=== PATIENT | female | born 1970 | race Caucasian/White ===

== ENCOUNTER 2023-09-10 16:05 | Emergency (ER) | payer OTHER, SELFPAY ==
[2023-09-10 16:07] VITALS: BP 165/93
--- NOTE | 2023-09-10 17:05 | ED.MUSCINJ ---
HPI-Injury
General
Chief Complaint: Musculo-Skeletal Complaint
Source: patient
Exam Limitations: none
Time Seen by Provider: 09/10/23 16:39
Nursing documentation reviewed up to this point in time: agreed with
History of Present Illness-Injury
Is this injury a work related problem?: No
Is pt an associate of [facility] [place]?: No
Initial Injury comments:
Patient states she rolled her left foot. COmplains of pain to left lateral foot. Injury occurred this past weekend. Brought self to ED for eval.
Past History
Past History
ED Past Medical History: Other (Diverticulitis, diverticulosis) and Other (Uterine fibroids)
ED Past Surgical History: Gynecological, Tonsilectomy and Other (G3, P3; breast augmentation; endometrial ablasion; ); Negative Appendectomy, Bowel resection, Brain or Cardiac
Social History
Tobacco: Smoker
Alcohol: Occasional
Drug: None
Personal:
Living: with family
Employment: Employed
Family History
Family History: Other (reviewed and non-contributory)
Review of Systems
Review of Systems
Allergies reviewed?: Yes
All Other Systems: ROS reviewed and negative except as documented in HPI and ROS
Constitutional: Reports no symptoms
Musculoskeletal: Reports joint pain (Pain to left lateral foot)
Skin: Reports no symptoms
Neurological: Reports no symptoms
Psychiatric: Reports no symptoms
Musculoskeletal Injury Exam
Musculoskeletal Injury Exam
Left Lateral Foot:
Pain with Movement?: Moderate
Tender to palpation?: Moderate
Soft tissue swelling?: Mild
External deformity and angulation?: None
Joint effusion?: None
Contusion?: None
Hematoma-local bleeding into tissue?: Moderate
Strain- Sprain- Tear (Connective tissue injury)?: Moderate
Crepitus with movement?: No
Joint instability?: No
Malalignment/deformity?: No
Range of motion: Limited
Distal skin color and temperature: normal-warm & good color
Capillary Refill: normal
Normal distal neurovascular exam?: Yes
Peripheral Pulses: posterior tibial (left): 3+ and dorsalis pedis (left): 3+
Phy Exam
General Physical Exam
General Presentation: well appearing and no apparent distress
General age: appears stated age
General Skin: warm and dry
General Habitus: normal
General Mental: alert
Musculoskeletal Exam
Musculoskeletal Exam: full ROM, neuro vasc intact and other (achilles intact.No tenderness proximal tib/fib)
Skin Exam
Skin Exam: normal color, warm/dry and no rash
Psychiatric Exam
Psychiatric Exam: normal mood/affect
Injury Course
Orders/Labs/Results
Orders:
Orders
09/10/23 16:10
Ankle, left 3 view CR [CR Ankle - Left Min 3 Views ] Urgent
Comment:
Reason For Exam: pain, swelling, injury
Foot, Left 3 View [CR Foot - Left Min 3 Views] Urgent
Comment:
Reason For Exam: pain on outer foot area
09/10/23 16:58
Ortho Boot Left- Treatment ONCE
Short or tall?: Short
*Radiology
Radiology exam reviewed: radiology read reviewed
*Critical Care Note
Total Time (30-74mins, 75-104mins- exclusive of procedures): Not Applicable
ED Attending Note
-
Portions of this chart may have been created with voice recognition software.� Occasional wrong word or��sound alike� substitutions may have occurred due to the inherent limitations of voice recognition software.
Discharge Plan
Departure
Patient Disposition: Home (Routine Discharge)
Date of Disposition: 09/10/23
Time of Disposition: 16:59
Patient with high blood pressure during this ER visit?: No
Condition: Good
Covid-19: Not Applicable
Discharge Problem:
Metatarsal fracture
Instructions: Ibuprofen, Walking Boot, Using Cold for Pain, Foot Fracture
Prescriptions:
No Action
alprazolam 0.25 MG tablet
0.25 mg PO PRN PRN (Reason: anxiety)
amoxicillin-pot clavulanate 875-125 mg tablet
1 tab PO TID 7 Days Qty: 21 0RF
fluconazole [Diflucan] 150 mg tablet
150 mg PO ONCE Qty: 1 0RF
Rx Instructions:
Please take dose after conclusion of antibiotics.
oxycodone 5 mg tablet
5 mg PO BID PRN (Reason: Pain) Qty: 10 0RF
cephalexin 500 mg tablet
500 mg PO BID 10 Days Qty: 20 0RF
Referrals:
Juan Pablo Lozano MD [Active] - Call in 1-3 days for appt
Desire Monique DO [Family Provider] -
Interventions
Interventions:
*Risk Screen - Suicide Last Done: 09/10/23 16:07
*General Assessment Last Done: 09/10/23 16:07
*Neglect/Abuse Screening Last Done: 09/10/23 16:07
ED-Musculoskeletal Assessment Last Done: 09/10/23 16:35
Discharge Date and Time
Print Language: YORUBA
[2023-09-10 17:15] VITALS: BP 143/99
== END 2023-09-10 17:16 | disposition home or self-care (01) ==
LOC: EMR 16:05
PROVIDERS: EMERGENCY PHYSICIAN Emergency Medicine; FAMILY PHYSICIAN Family Medicine
DX: S92.302A Fracture of unspecified metatarsal bone(s), left foot, initial encounter for closed fracture (principal); S90.32XA Contusion of left foot, initial encounter; X50.1XXA Overexertion from prolonged static or awkward postures, initial encounter; K57.90 Diverticulosis of intestine, part unspecified, without perforation or abscess without bleeding; F41.9 Anxiety disorder, unspecified; F17.210 Nicotine dependence, cigarettes, uncomplicated
CPT/HCPCS: 99283; 29515; 73610; 73630

== ENCOUNTER 2023-12-26 08:57 | Emergency (ER) | payer OTHER, SELFPAY ==
[2023-12-26 08:59] VITALS: BP 128/76
[2023-12-26 09:42] VITALS: BMI 28.3
[2023-12-26] MEDS: BENADRYL 50 MG PO (09:45)
[2023-12-26] MEDS: DELTASONE 60 MG PO (09:45)
--- NOTE | 2023-12-26 09:45 | ED.GENMED ---
History of Present Illness
General
Chief Complaint: Allergic Reaction
Time Seen by Provider: 12/26/23 09:23
History of Present Illness
History of Present Illness:
53-year-old female without significant past medical history presenting for concern of allergic reaction. Patient reports symptoms started 2 days ago. She presents with diffuse hives of unclear etiology. She denies throat closure or difficulty
breathing. Denies abdominal pain or vomiting. Does note that she is recovering from recent diverticulitis, has been on ciprofloxacin and metronidazole since last Saturday, has never had a reaction to these medications. He has been drinking naked
smoothies, is unclear if she reacted to a component of that. Denies known allergies in the past. Denies additional acute medical complaint
Past History
Past History
ED Past Medical History: Other (Diverticulitis, diverticulosis) and Other (Uterine fibroids)
ED Past Surgical History: Gynecological, Tonsilectomy and Other (G3, P3; breast augmentation; endometrial ablasion; ); Negative Appendectomy, Bowel resection, Brain or Cardiac
Social History
Tobacco: Smoker
Alcohol: Occasional
Drug: None
Personal:
Living: with family
Employment: Employed
Family History
Family History: Other (reviewed and non-contributory)
Phy Exam
Physical Exam
Physical Exam:
General: Well-appearing, no clinical signs of dehydration, nontoxic and in no acute distress
HEENT: protecting airway, no oropharyngeal swelling
Neck: appears supple
CV: Normal heart rate, regular rhythm
Resp: No accessory muscle use, no increased work of breathing, lungs clear to auscultation bilaterally
Abd: Soft and non-distended, no tenderness to palpation
Extremities: No deformities, no swelling
Neuro: alert, no focal neurologic deficit
: deferred
Rectal: deferred
Psych: Normal affect
Skin: Diffuse urticaria to the chest/back/extremities
Course
Orders/Labs/Results
Orders:
Orders
12/26/23 09:31
Diphenhydramine [Benadryl] 50 mg PO NOW STA
Prednisone [Deltasone] 60 mg PO NOW STA
Vital Signs
Initial and Last Documented VS:
Initial Vital Signs
Temp Pulse Resp BP Pulse Ox
98.4 F 85 18 128/76 99
12/26/23 08:59 12/26/23 08:59 12/26/23 08:59 12/26/23 08:59 12/26/23 08:59
Last Documented Vital Signs
Temp Pulse Resp BP Pulse Ox
98.4 F 85 18 128/76 100
12/26/23 08:59 12/26/23 08:59 12/26/23 08:59 12/26/23 08:59 12/26/23 09:42
MDM/Problems Addressed
MDM/Problems Addressed:
53-year-old female presenting to the emergency department for concern of allergic reaction with diffuse urticaria. Vital signs on arrival are normal.
On exam patient is well-appearing, no acute respiratory distress. Benign cardiac and pulmonary exam. No tenderness to abdomen. Symptoms appear most consistent with acute allergic reaction, unclear trigger. No acute signs of anaphylaxis, again no
respiratory or systemic symptoms. Patient is protecting airway. Patient is currently on antibiotics, however has been on them for about a week now and has tolerated these medications in the past. Did have discussion about changing antibiotics.
Would like to finish out her course, because she also reacts poorly to Augmentin. Given diffuse nature of urticaria, will start on oral steroid. Otherwise feel stable for discharge. Advised follow-up with PCP and potato inspector for full allergy
testing, possible food allergen. Symptoms started after drinking a smoothie. Will prescribe steroid, Benadryl, EpiPen. Return precautions discussed and patient verbalized understanding.
*Critical Care Note
Total Time (30-74mins, 75-104mins- exclusive of procedures): Not Applicable
ED Attending Note
-
Portions of this chart may have been created with voice recognition software.� Occasional wrong word or��sound alike� substitutions may have occurred due to the inherent limitations of voice recognition software.
Discharge Plan
Departure
Patient Disposition: Home (Routine Discharge)
Date of Disposition: 12/26/23
Time of Disposition: 09:45
Patient with high blood pressure during this ER visit?: No
Condition: Good
Discharge Problem:
Allergic reaction, Acute urticaria
Instructions: Hives (DC), Allergic Reaction ED
Prescriptions:
New
prednisone 20 mg tablet
40 mg PO BID 5 Days Qty: 20 0RF
diphenhydramine HCl [Benadryl] 25 mg capsule
25 mg PO TID PRN (Reason: allergic reaction) Qty: 15 0RF
epinephrine [EpiPen 2-Jayden] 0.3 mg/0.3 mL auto-injector
0.3 mg IM ONCE Qty: 2 0RF
No Action
alprazolam 0.25 MG tablet
0.25 mg PO PRN PRN (Reason: anxiety)
amoxicillin-pot clavulanate 875-125 mg tablet
1 tab PO TID 7 Days Qty: 21 0RF
fluconazole [Diflucan] 150 mg tablet
150 mg PO ONCE Qty: 1 0RF
Rx Instructions:
Please take dose after conclusion of antibiotics.
oxycodone 5 mg tablet
5 mg PO BID PRN (Reason: Pain) Qty: 10 0RF
cephalexin 500 mg tablet
500 mg PO BID 10 Days Qty: 20 0RF
Referrals:
Desire Monique DO [Family Provider] -
Activity Restrictions/Additional Instructions:
You were seen in the emergency department for concern of an allergic reaction
You were prescribed prednisone and an EpiPen
Please follow-up closely with your primary care physician.
Return to the emergency department for any worsening of your symptoms, including worsening of rash, feeling of throat swelling or closure, or any development of chest pain, difficulty breathing, abdominal pain with persistent vomiting and inability
to tolerate food or liquid by mouth (concern for dehydration), weakness, headache or confusion, fever greater than 100.4, or any additional symptoms that are concerning to you.
Thank you for choosing [facility].
Interventions
Interventions:
*Risk Screen - Suicide Last Done: 12/26/23 08:59
*General Assessment Last Done: 12/26/23 08:59
*Neglect/Abuse Screening Last Done: 12/26/23 08:59
ED- Fall Risk Assessment Last Done: 12/26/23 09:42
*ED COVID-19 Vaccine History Last Done: 12/26/23 09:42
ED- Cardiac Assessment Last Done: 12/26/23 09:42
ED- Pulmonary Assessment Last Done: 12/26/23 09:42
ED-Skin Assessment Last Done: 12/26/23 09:42
Discharge Date and Time
Print Language: SETSWANA
== END 2023-12-26 09:49 | disposition home or self-care (01) ==
LOC: EMR 08:57
PROVIDERS: EMERGENCY PHYSICIAN Student in an Organized Health Care Education/Training Program; FAMILY PHYSICIAN Family Medicine
DX: L50.0 Allergic urticaria (principal); T78.40XA Allergy, unspecified, initial encounter; X58.XXXA Exposure to other specified factors, initial encounter; F17.200 Nicotine dependence, unspecified, uncomplicated
CPT/HCPCS: 99283

== ENCOUNTER 2024-07-17 08:41 | Emergency (ER) | payer OTHER, SELFPAY ==
[2024-07-17 08:46] VITALS: BP 154/98
--- NOTE | 2024-07-17 09:45 | ED.GENMED ---
History of Present Illness
General
Chief Complaint: Musculo-Skeletal Complaint
Time Seen by Provider: 07/17/24 08:51
History of Present Illness
History of Present Illness:
54-year-old female presents the emergency department for evaluation of left ankle pain after falling off a mechanical bull at the bar outside of the [employer] yesterday. She is able to bear weight with discomfort
Past History
Past History
ED Past Medical History: Other (Diverticulitis, diverticulosis) and Other (Uterine fibroids)
ED Past Surgical History: Gynecological, Tonsilectomy and Other (G3, P3; breast augmentation; endometrial ablasion; ); Negative Appendectomy, Bowel resection, Brain or Cardiac
Social History
Tobacco: Smoker
Alcohol: Occasional
Drug: None
Personal:
Living: with family
Employment: Employed
Family History
Family History: Other (reviewed and non-contributory)
Review of Systems
Review of Systems
Allergies reviewed?: Yes
All Other Systems: ROS reviewed and negative except as documented in HPI and ROS
Phy Exam
Physical Exam
Physical Exam:
GEN: Well appearing, NAD, WDWN
HEENT: Oral mucosa moist, no scleral icterus
Cardiac: Regular rate
Lung: No respiratory distress, no tachypnea
MSK: Severe swelling and ecchymosis to the left ankle extending to the foot, limited range of motion secondary to pain
Skin: Good color, no pallor or jaundice, no rashes
Neuro: AO x3, moves all extremities freely
Psych: Calm, cooperative
Course
Orders/Labs/Results
Orders:
Orders
07/17/24 08:48
Ankle, left 3 view CR [CR Ankle - Left Min 3 Views ] Urgent
Comment:
Reason For Exam: injury
Vital Signs
Initial and Last Documented VS:
Initial Vital Signs
Temp Pulse Resp BP Pulse Ox
98.3 F 72 16 154/98 98
07/17/24 08:46 07/17/24 08:46 07/17/24 08:46 07/17/24 08:46 07/17/24 08:46
Last Documented Vital Signs
Temp Pulse Resp BP Pulse Ox
98.3 F 72 16 154/98 98
07/17/24 08:46 07/17/24 08:46 07/17/24 08:46 07/17/24 08:46 07/17/24 08:46
MDM/Problems Addressed
MDM/Problems Addressed:
Plain films are negative. Likely significant ligamentous injury coupled with potential bone bruise given degree of edema. Orthopedic boot placed and will follow-up as an outpatient with Ortho
*Critical Care Note
Total Time (30-74mins, 75-104mins- exclusive of procedures): Not Applicable
ED Attending Note
-
Portions of this chart may have been created with voice recognition software.� Occasional wrong word or��sound alike� substitutions may have occurred due to the inherent limitations of voice recognition software.
Discharge Plan
Departure
Patient Disposition: Home (Routine Discharge)
Date of Disposition: 07/17/24
Time of Disposition: 09:46
Patient with high blood pressure during this ER visit?: No
Discharge Problem:
Moderate left ankle sprain
Instructions: Ankle sprain - ED discharge instructions
Prescriptions:
No Action
alprazolam 0.25 MG tablet
0.25 mg PO PRN PRN (Reason: anxiety)
amoxicillin-pot clavulanate 875-125 mg tablet
1 tab PO TID 7 Days Qty: 21 0RF
fluconazole [Diflucan] 150 mg tablet
150 mg PO ONCE Qty: 1 0RF
Rx Instructions:
Please take dose after conclusion of antibiotics.
oxycodone 5 mg tablet
5 mg PO BID PRN (Reason: Pain) Qty: 10 0RF
cephalexin 500 mg tablet
500 mg PO BID 10 Days Qty: 20 0RF
prednisone 20 mg tablet
40 mg PO BID 5 Days Qty: 20 0RF
diphenhydramine HCl [Benadryl] 25 mg capsule
25 mg PO TID PRN (Reason: allergic reaction) Qty: 15 0RF
epinephrine [EpiPen 2-Jayden] 0.3 mg/0.3 mL auto-injector
0.3 mg IM ONCE Qty: 2 0RF
Referrals:
Desire Monique DO [Family Provider] -
Cristobal Merchant MD [Active] -
Interventions
Interventions:
*Risk Screen - Suicide Last Done: 07/17/24 08:46
*General Assessment Last Done: 07/17/24 09:04
*Neglect/Abuse Screening Last Done: 07/17/24 08:46
*ED- Fall Risk Assessment Last Done: 07/17/24 09:04
*ED COVID-19 Vaccine History Last Done: 07/17/24 09:04
*Nursing Disposition Last Done: 07/17/24 09:53
ED-Musculoskeletal Assessment Last Done: 07/17/24 09:04
Discharge Date and Time
Discharge Date/Time: 07/17/24 09:54
Print Language: CENTRAL AFRICAN
== END 2024-07-17 09:54 | disposition home or self-care (01) ==
LOC: EMR 08:41
PROVIDERS: EMERGENCY PHYSICIAN Emergency Medicine; FAMILY PHYSICIAN Family Medicine
DX: S93.402A Sprain of unspecified ligament of left ankle, initial encounter (principal); W31.89XA Contact with other specified machinery, initial encounter; F17.200 Nicotine dependence, unspecified, uncomplicated; Z90.49 Acquired absence of other specified parts of digestive tract
CPT/HCPCS: 99283; 73610